=== PATIENT | female | born 1940 | race Caucasian/White ===

== ENCOUNTER → 2016-10-13 | Outpatient (CLI) | payer MEDICARE ==
[~2016-10-13] MED LIST: ACYC400T21 PO; ASP81TEC PO; HYDR-1231 PO; LOSA1TAB23 PO; MAXIDE; PRILOSEC 20MG; PRX10T; SOLI5TAB4 PO; TOLTA4; [UNRECOGNIZED DRUG - OTHER]
--- NOTE | 2016-10-13 18:54 | Diagnostic Imaging Report ---
Digital mammogram bilateral screening with tomosynthesis. This study was compared to the prior exams of 12/27/2014 and 02/21/2012. At this time, there are no current complaints. The current study was also evaluated with a Computer Aided Detection (CAD) system. FINDINGS: There are scattered fibroglandular densities in both breasts which could obscure a lesion. When compared to the previous study, there has been no significant change. There is no primary or secondary sign of malignancy noted. There are a Few punctate calcific-like densities overlying the left axilla on the MLO view. I suspect these are secondary to deodorant artifact. I would recommend that a repeat MLO view be performed for further evaluation. IMPRESSION: 1. There is no evidence of malignancy. 2. The MLO view of the left breast should be repeated. ACR BI-RADS Category 0: Incomplete. (Needs additional imaging evaluation). Result letter will be mailed to the patient. Note: At least 10% of breast cancer is not imaged by mammography. Dictated by: Dictated on workstation # [id number]
== END ==
LOC: RAD 08:36
PROVIDERS: ATTEND Obstetrics & Gynecology
DX: Z12.31 Encounter for screening mammogram for malignant neoplasm of breast (principal)
CPT/HCPCS: 77067

== ENCOUNTER → 2016-10-13 | Outpatient (CLI) | payer MEDICARE ==
--- NOTE | 2016-10-13 10:05 | Diagnostic Imaging Report ---
PROCEDURE: US abdomen complete. TECHNIQUE: Multiple real-time grayscale images were obtained over the abdomen in various projections. INDICATION: Bloody diarrhea. There are no previous ultrasound examinations available for comparison. FINDINGS: The liver does not appear to be enlarged. There is no focal mass involving the liver and the biliary tree is not abnormally dilated. There is no sign of cholelithiasis or acute cholecystitis and the common bile duct is not dilated. The pancreas, the spleen, kidneys, aorta and inferior vena cava are unremarkable for an acute abnormality. There is a 1.0 x 0.8 x 0.7 CM benign-appearing cyst along the inferior pole of the left kidney. There is no mass or free fluid collection noted. IMPRESSION: 1. There is no acute abnormality of the abdomen. 2. If clinical concern regarding an underlying abnormality of the gallbladder persists, then a nuclear medicine hepatobiliary scan would be recommended for further study. Dictated by: Dictated on workstation # [id number]
--- NOTE | 2016-10-13 10:08 | Diagnostic Imaging Report ---
Pelvic ultrasound. INDICATION: Pelvic pain. There are no previous pelvic ultrasound examinations available for comparison. FINDINGS: The uterus is not enlarged measuring 4.7 x 3.2 x 1.6 CM. The endometrial lining is not thickened measuring 1 MM. There is no focal mass involving the uterus to suggest fibroid. Neither ovary was identified. There is no solid pelvic mass or free fluid collection noted. IMPRESSION: 1. There is no acute pelvic abnormality noted. 2. The ovaries were not identified. Dictated by: Dictated on workstation # [id number]
== END ==
LOC: RAD 08:33
PROVIDERS: ATTEND Obstetrics & Gynecology
DX: R10.2 Pelvic and perineal pain (principal); F10.20 Alcohol dependence, uncomplicated; R16.2 Hepatomegaly with splenomegaly, not elsewhere classified
CPT/HCPCS: 76700; 76830; 76856

== ENCOUNTER → 2016-10-26 | Outpatient (CLI) | payer MEDICARE ==
--- NOTE | 2016-10-28 10:30 | Diagnostic Imaging Report ---
ADDENDUM: This is an addendum to the mammogram performed on 10/13/2016. The previous bilateral screening mammogram noted punctate densities overlying the left axilla on the MLO view. These findings were felt to be related to deodorant artifact. The patient was asked to return to confirm that these punctate densities were in fact artifactual in nature. On this study, those punctate densities are not identified. There are still two microcalcifications present. I do suspect that the densities in question were artifactual in nature. IMPRESSION: There is no evidence for malignancy. ACR BI-RADS Category 1: Negative. Result letter will be mailed to the patient. Note: At least 10% of breast cancer is not imaged by mammography. Dictated by: Dictated on workstation # [id number]
== END ==
LOC: RAD 10:44
PROVIDERS: ATTEND Obstetrics & Gynecology
DX: Z12.31 Encounter for screening mammogram for malignant neoplasm of breast (principal)

== ENCOUNTER → 2017-01-21 | Outpatient (CLI) | payer MEDICARE ==
--- NOTE | 2017-01-21 10:54 | Diagnostic Imaging Report ---
PROCEDURE: US Carotid Duplex Bilateral. INDICATION: Blurred vision. Neck and throat pain. TECHNIQUE: Multiple real-time images with color Doppler imaging were performed. Doppler velocity and waveform data were obtained. The cervical carotid and vertebral arteries were evaluated. FINDINGS: Color and grayscale images demonstrate mild scattered atheromatous plaque involving the carotid arteries, particularly at the carotid bifurcations. However, there are no abnormally elevated velocities or findings to suggest significant stenosis of the carotid arteries at this time. Peak systolic ICA/CCA ratio on the right is 0.69 and on the left 1.12. External carotid arteries are patent. Vertebral arteries are with antegrade direction of flow. IMPRESSION: 1. Carotid Doppler imaging demonstrates no findings to suggest a hemodynamically significant stenosis at this time. Dictated by: Dictated on workstation # [id number]
== END ==
LOC: RAD 09:27
PROVIDERS: ATTEND Nurse Practitioner Family
DX: H53.8 Other visual disturbances (principal); R07.0 Pain in throat; M54.2 Cervicalgia
CPT/HCPCS: 93880

== ENCOUNTER → 2017-06-02 | Outpatient (CLI) | payer MEDICARE ==
--- NOTE | 2017-06-02 11:09 | Diagnostic Imaging Report ---
Indication: Low back pain and sacral pain for 2 months. Time of exam: 9:50 AM Curvature and alignment of the lumbar spine is normal. There is generalized demineralization noted. The vertebral body heights are maintained. No acute compression fracture is detected. There appears to be lower lumbar facet arthropathy. Atherosclerotic calcifications in the abdominal aorta are noted. Impression: Spondylosis and demineralization. No acute bony abnormality is detected. Dictated by: Dictated on workstation # [id number]
--- NOTE | 2017-06-02 11:24 | Diagnostic Imaging Report ---
Indication: Low back pain and sacral pain. Time of exam: 9:52 AM Findings: There is demineralization. Sacrococcygeal alignment appears normal. No fractures are seen. Sacral arcuate lines are intact. SI joints and symphysis are unremarkable. Impression: No acute abnormality is detected. Dictated by: Dictated on workstation # [id number]
== END ==
LOC: RAD 09:20
PROVIDERS: ATTEND Family Medicine
DX: M47.816 Spondylosis without myelopathy or radiculopathy, lumbar region (principal); M81.0 Age-related osteoporosis without current pathological fracture
CPT/HCPCS: 72100; 72220

== ENCOUNTER 2017-06-24 09:24 | Outpatient (RCR) | payer MEDICARE | END 2017-06-24 11:42 | disposition home or self-care (01) | PROVIDERS: ATTEND Family Medicine | DX: M54.5 Low back pain (principal); M54.2 Cervicalgia ==

== ENCOUNTER → 2018-05-18 | Outpatient (CLI) | payer MEDICARE ==
--- NOTE | 2018-05-18 13:39 | Diagnostic Imaging Report ---
PROCEDURE: US Thyroid. TECHNIQUE: Multiple real-time grayscale images were obtained of the thyroid in various projections. INDICATION: Thyroid nodules. COMPARISON: No prior studies are available for comparison. FINDINGS: The right lobe of the thyroid measures 4.7 x 1.9 x 1.3 cm and the left lobe measures 4.3 x 1.4 x 1.5 cm. Isthmus is 2 mm in thickness. Small bilateral circumscribed thyroid nodules are identified. The largest nodule on the right is approximately 7 mm x 6 mm. Largest nodule on the left is approximately 5 mm in size. No microcalcifications are seen. No dominant thyroid mass is detected. IMPRESSION: Subcentimeter bilateral thyroid nodules. No dominant thyroid mass is detected. Dictated by: Dictated on workstation # [id number]
--- NOTE | 2018-05-18 19:41 | Diagnostic Imaging Report ---
PROCEDURE: CT chest without contrast. TECHNIQUE: Multiple contiguous axial images were obtained through the chest without the use of intravenous contrast. Auto Exposure Controls were utilized during the CT exam to meet ALARA standards for radiation dose reduction. DATE: May 18, 2018. COMPARISON: CT chest, November 14, 2014. INDICATION: 57-year-old female, emphysema, shortness of breath. PROCEDURE: Axial noncontrasted CT images of the chest. Noncontrasted limits the evaluation of the mediastinum and vascular structures. FINDINGS: There are very mild linear opacities in the lingula and right middle lobe that likely relate to mild atelectasis or scarring. There is a semisolid left upper lobe pulmonary nodule, measuring 9 mm in size on axial image 21. This is new since November 14, 2014. There is no additional identified pulmonary nodule. There is no lung mass. There is no additional focal airspace consolidation. The central airways are patent. There is no pneumothorax. There is no pleural effusion. The heart is not enlarged. There is no pericardial effusion. There are atherosclerotic calcifications. There is no identified abnormally enlarged mediastinal or axillary lymph node which meets CT size criteria for adenopathy. There is cholelithiasis without evidence of acute cholecystitis. Additional evaluation of the imaged portions of the upper abdomen are unremarkable. There is no identified acute bony abnormality. IMPRESSION: 9 mm semisolid left upper lobe pulmonary nodule which is new since November 14, 2014. Recommend short-term followup CT chest in 1-2 months to evaluate for possible stability. Dictated by: Dictated on workstation # [id number]
== END ==
LOC: RAD 12:39
PROVIDERS: ATTEND Family Medicine
DX: E04.2 Nontoxic multinodular goiter (principal); J43.9 Emphysema, unspecified; R91.1 Solitary pulmonary nodule
CPT/HCPCS: 71250; 76536

== ENCOUNTER → 2018-06-15 | Outpatient (CLI) | payer MEDICARE | LOC: CARD 11:38 | PROVIDERS: ATTEND Internal Medicine Cardiovascular Disease | DX: I10 Essential (primary) hypertension (principal); R07.89 Other chest pain; I65.29 Occlusion and stenosis of unspecified carotid artery; E78.2 Mixed hyperlipidemia; Z72.0 Tobacco use; I34.0 Nonrheumatic mitral (valve) insufficiency | CPT/HCPCS: 93306 ==

== ENCOUNTER → 2018-06-21 | Outpatient (CLI) | payer MEDICARE ==
[~2018-06-21] MED LIST changes: +CATHETER FLUSH 10 ML SYR IV PRN
[2018-06-21 09:21] VITALS: BP 156/83
--- NOTE | 2018-06-21 19:53 | STRESS TEST ---
DATE OF SERVICE: 06/21/2018 AN EXERCISE MYOVIEW STRESS TEST REPORT REFERRING PHYSICIAN: Renee Hernandez MD INDICATION: Chest pain. Baseline heart rate is 65, baseline blood pressure 172/95. Baseline EKG is sinus rhythm with no ischemic changes. In summary, the patient was injected with 10.8 mCi of technetium-99 Myoview and the resting images were obtained. Then, the patient started exercising with a baseline heart rate, blood pressure and EKG mentioned above. The patient was able to exercise for a total of 6 minutes 30 seconds on standard Bimal protocol. With peak exercise level, EKG was showing [address] depression in II, III, aVF, V4 and V5. Blood pressure was 180/83. During recovery, heart rate and blood pressure returned to baseline. EKG returned to baseline. The resting and stress images were reviewed and compared in the short axis, horizontal long axis, and vertical long axis views. Review of the images showed good radiotracer uptake with no significant ischemia or infarction. SSS is 3, SDS 3, TID value 0.97. On the gated images, the left ventricle appeared to be in normal size with normal contractility. Calculated ejection fraction 83%. CONCLUSION: 1. Fair exercise tolerance, a total of 6 minutes 30 seconds on standard Bimal protocol, total of 7.7 METS achieving 92% of maximum expected heart rate. 2. Appropriate heart rate and blood pressure response to exercise, returned to baseline during recovery. 3. Nondiagnostic EKG changes with exercise, returned to baseline during recovery. 4. No significant ischemia or infarction on SPECT images. 5. Normal left ventricular size with normal contractility. Calculated ejection fraction 83%. Job ID: [id number] DocumentID: [id number] Dictated Date: 06/21/2018 15:16:51 [employer] Front Desk Attendant Date: 06/21/2018 19:52:59 Dictated By: SONDRA MONTENEGRO MD
== END ==
LOC: CARD 06:47
PROVIDERS: ATTEND Internal Medicine Cardiovascular Disease
DX: R07.89 Other chest pain (principal); I10 Essential (primary) hypertension; E78.2 Mixed hyperlipidemia; Z72.0 Tobacco use
CPT/HCPCS: 78452; 93017

== ENCOUNTER → 2018-07-21 | Outpatient (CLI) | payer MEDICARE ==
[~2018-07-21] MED LIST changes: -CATHETER FLUSH 10 ML SYR IV PRN; +RT-ALBUTEROL SULF 2.5 MG/3 ML PRE-MIX VIAL INH ONE
== END ==
LOC: RT 12:56
PROVIDERS: ATTEND Nurse Practitioner Family
DX: R05 Cough (principal); R06.89 Other abnormalities of breathing; J30.9 Allergic rhinitis, unspecified; R06.00 Dyspnea, unspecified; R91.8 Other nonspecific abnormal finding of lung field; F17.201 Nicotine dependence, unspecified, in remission
CPT/HCPCS: 94060; 94726; 94729

== ENCOUNTER → 2018-07-25 | Outpatient (CLI) | payer MEDICARE ==
[~2018-07-25] MED LIST changes: +HOLD METFORMIN - RECEIVED CONTRAST 20 ML VIAL IV SCH; +IOHEXOL 350 MG/ML 100 ML (OMNIPAQUE 350) VIAL IV ONE; +NS 100 ML (IVPB) BAG IV ONE; -RT-ALBUTEROL SULF 2.5 MG/3 ML PRE-MIX VIAL INH ONE
[2018-07-25 08:28] LABS: BUN/CREATININE RATIO 16; CREATININE SERUM 0.88 MG/DL (0.60-1.30); GFR ESTIMATED > 60
--- NOTE | 2018-07-25 10:49 | Diagnostic Imaging Report ---
PROCEDURE: CT chest with contrast only. TECHNIQUE: Multiple contiguous axial images were obtained through the chest after administration of intravenous contrast. Auto Exposure Controls were utilized during the CT exam to meet ALARA standards for radiation dose reduction. INDICATION: Followups of solid pulmonary nodule. COMPARISON: 05/18/2018 FINDINGS: Evaluation of the lung cornejo again demonstrate faint sub-solid micronodular density within the lateral margins of the left upper lobe. It measures 9 mm on today's exam (image 29, series 2), in comparison to 9 mm previously. Punctate subpleural micronodules also noted within the medial margins of the superior segment of the right lower lobe and measures approximately 2 mm (image 32, series 2). This is stable as well. No new suspicious pulmonary nodule or mass is identified. There is no focal consolidation, large effusion, nor pneumothorax. Note is again made of background mild emphysematous disease. Cardiomediastinal structures show normal heart size. There is moderate diffuse calcified aortic atherosclerosis and mild calcified coronary atherosclerotic disease. There is no large pericardial effusion. No pathologically enlarged or morphologically abnormal adenopathy is seen within the mediastinum, gabriele, nor axilla. Osseous structures show no acute abnormalities. Included portions of the upper abdomen show small cystic-appearing foci involving the left kidney and liver. IMPRESSION: 1. Stable faint sub-solid 9 mm micronodule within the left upper lobe. Six-month followup is recommended to ensure ongoing stability. 2. Stable micronodular density within the superior segment of the right lower lobe. 3. No new suspicious pulmonary nodule or mass. 4. Background mild emphysematous disease. Dictated by: Dictated on workstation # [id number]
== END ==
LOC: RAD 07:56
PROVIDERS: ATTEND Nurse Practitioner Family
DX: J43.9 Emphysema, unspecified (principal); J98.4 Other disorders of lung; R91.1 Solitary pulmonary nodule; J30.9 Allergic rhinitis, unspecified; F17.201 Nicotine dependence, unspecified, in remission
CPT/HCPCS: 36415; 71260; 82565; 84520

== ENCOUNTER 2018-11-16 09:25 | Emergency (ER) | payer MEDICARE ==
[~2018-11-16] VITALS: Ht 154.9 cm; Wt 59.0 kg
[~2018-11-16 09:25] MED LIST changes: -HOLD METFORMIN - RECEIVED CONTRAST 20 ML VIAL IV SCH; -IOHEXOL 350 MG/ML 100 ML (OMNIPAQUE 350) VIAL IV ONE; -NS 100 ML (IVPB) BAG IV ONE
[2018-11-16] MEDS ORDERED: NS IV 500 ML 500 ML IV ONE (09:57)
[2018-11-16 10:07] LABS: BASOPHILS # (AUTO) 0.1 10^3/uL (0.0-0.1); BASOPHILS % (AUTO) 1 % (0-10); EOSINOPHILS # (AUTO) 0.1 10^3/uL (0.0-0.3); EOSINOPHILS % (AUTO) 1 % (0-10); HEMATOCRIT 45 % (35-52); HEMOGLOBIN 14.9 G/DL (11.5-16.0); LYMPHOCYTES # (AUTO) 1.6 X 10^3 (1.0-4.0); LYMPHOCYTES % (AUTO) 23 % (12-44); MEAN CORPUSCULAR HEMOGLOBIN 31 PG (25-34); MEAN CORPUSCULAR HGB CONC 33 G/DL (32-36); MEAN CORPUSCULAR VOLUME 94 FL (80-99); MEAN PLATELET VOLUME 10.5 FL (7.4-10.4); MONOCYTES # (AUTO) 0.5 X 10^3 (0.0-1.0); MONOCYTES % (AUTO) 7 % (0-12); NEUTROPHILS # (AUTO) 4.8 X 10^3 (1.8-7.8); NEUTROPHILS % (AUTO) 68 % (42-75); PLATELET COUNT 250 10^3/uL (130-400); RED CELL DISTRIBUTION WIDTH 15.2 % (10.0-14.5); WHITE BLOOD COUNT 7.1 10^3/uL (4.3-11.0)
--- NOTE | 2018-11-16 10:12 | ED Neurological Problem ---
General Chief Complaint: Dizziness/Syncope Stated Complaint: DIZZINESS Nursing Triage Note: PT TO RM 5 BY WHEELCHAIR WITH COMPLAINT OF DIZZINES AND SPINNING. STATES SYMPTOMS STARTED THIS MORNING. STATES TOOK BP AT HOME AND IT WAS HIGH. Nursing Sepsis Screen: No Definite Risk Source: patient Exam Limitations: no limitations (CANDELARIO GARCIA STUDENT) History of Present Illness Date Seen by Provider: Nov 16, 2018 Time Seen by Provider: 09:50 Initial Comments The patient is a wd/wn 77 y/o woman who is here with a chief complaint of dizziness. She states that she had some mild dizziness yesterday and woke up this morning with severe dizziness. She has been laying on the couch with her eyes closed to try and alleviate symptoms. She reports that the symptoms are non-positional and that closing her eyes seems to help. She also mentions having some posterior left neck pain yesterday. She denies any recent illnesses, fever, headaches, ringing in ears, loss of hearing, or ear pressure. She mentions having a previous episode of vestibular neuritis years ago and that this feels similar albeit more intense. Timing/Duration: 1-3 hours Severity: mild Associated Symptoms: No fever/chills, No numbness in legs/feet, No paresthesia, No ringing in ears, No tingling in legs/feet, No vision changes (CANDELARIO GARCIA MED STUDENT) Initial Comments Here with dizziness that is noted yesterday afternoon and much worse this morning when she got up. Did have some difficulty with walking due to the dizziness and had to be assisted at home and from the car inside here today. She states overall it is actually better though than what it was at its worst. Denies recent illness. Does have some left lateral neck pain that she noted yesterday. This does not limit motion. It is not central. Denies any recent injury. She does report working out at the [employer] a few days a week. Has had similar symptoms previous. Timing/Duration: 24 hours, waxing and waning Severity: moderate Associated Symptoms: No confusion, No nausea/vomiting, No seizures, No slurred speech, No weakness (CHEYANNE SERRANO MD) Allergies and Home Medications Allergies Coded Allergies: Sulfa (Sulfonamide Antibiotics) (Verified Allergy, Unknown, 02/28/06) Home Medications Acyclovir 400 Mg Tablet, 400 MG PO DAILY, (Reported) Aspirin 81 Mg Tabec, 81 MG PO DAILY, (Reported) Hydrocodone Bit/Acetaminophen 1 Tab Tablet, 1-2 TAB PO Q6H PRN for PAIN Prescribed by: ADALBERTO GARCIA on 02/18/14 0020 Losartan/Hydrochlorothiazide 1 Each Tablet, 1 EACH PO DAILY, (Reported) Solifenacin Succinate 5 Mg Tablet, 5 MG PO DAILY, (Reported) Patient Home Medication List Home Medication List Reviewed: Yes (CHEYANNE SERRANO MD) Review of Systems Review of Systems Constitutional: No fever, No malaise Eyes: Denies Blurred Vision, Denies Vision Changes Respiratory: No cough, No short of breath Cardiovascular: No chest pain, No palpitations (CANDELARIO GARCIA) Constitutional: see HPI Eyes: No Symptoms Reported Ears, Nose, Mouth, Throat: no symptoms reported Respiratory: no symptoms reported Cardiovascular: No chest pain, No palpitations Gastrointestinal: No abdominal pain, No nausea, No vomiting Genitourinary: no symptoms reported Musculoskeletal: no symptoms reported, muscle pain, neck pain Skin: no symptoms reported Psychiatric/Neurological: See HPI (CHEYANNE SERRANO MD) Past Uerfvhb-Tbjpcr-Rtjnmp Hx Past Med/Social Hx: Reviewed Nursing Past Med/Soc Hx (CHEYANNE SERRANO MD) Patient Social History Alcohol Use: Regular Use Alcohol Beverage of Choice: Whiskey, [place] Recreational Drug Use: No Smoking Status: Former Smoker Recent Foreign Travel: No Contact w/Someone Who Travel: No Recent Infectious Disease Expo: No Physical Abuse: No Sexual Abuse: No Mistreated: No Fear: No (CANDELARIO GARCIA STUDENT) Immunizations Up To Date Date of Pneumonia Vaccine: Jan 01, 2009 Date of Influenza Vaccine: Nov 21, 2013 (CANDELARIO GARCIA STUDENT) Seasonal Allergies Seasonal Allergies: No (CANDELARIO GARCIA) Past Medical History High Cholesterol, Hypertension Reproductive Disorders: No [facility] HOME History: Menopausal Gastrointestinal Bleed (CANDELARIO GARCIA) Family Medical History Reviewed Nursing Family Hx (CHEYANNE SERRANO MD) Physical Exam Vital Signs Vital Signs - First Documented 11/16/18 09:30 Temp 36.6 Pulse 84 Resp 12 B/P (MAP) 186/105 (132) Pulse Ox 97 O2 Delivery Room Air (CHEYANNE SERRANO MD) Vital Signs Capillary Refill : Less Than 3 Seconds (CANDELARIO GARCIA MED STUDENT) Height, Weight, BMI Height: 5'0" Weight: 128lbs. oz. 58.542265ul; 24.00 BMI Method:Stated General Appearance: WD/WN, no apparent distress HEENT: PERRL/EOMI; No photophobia Respiratory: chest non-tender, lungs clear, normal breath sounds Cardiovascular: regular rate, rhythm, no edema, no murmur Back: normal inspection, no vertebral tenderness Neurologic/Psychiatric: alert, normal mood/affect, oriented x 3 Crainal Nerves: normal hearing, normal speech, PERRL Motor/Sensory: no motor deficit, no sensory deficit Skin: normal color, warm/dry (CANDELARIO GARCIA MED STUDENT) General Appearance: WD/WN, no apparent distress HEENT: PERRL/EOMI, TMs normal, pharynx normal, other (question mild nonpersiste nt horizontal nystagmus. No vertical nystagmus noted.) Neck: full range of motion, supple Respiratory: lungs clear, normal breath sounds Cardiovascular: regular rate, rhythm Gastrointestinal: non tender, soft Back: normal inspection, no CVA tenderness, no vertebral tenderness Extremities: non-tender, normal inspection Neurologic/Psychiatric: alert, oriented x 3 Crainal Nerves: normal hearing, normal speech, PERRL Motor/Sensory: no motor deficit, no sensory deficit, no pronator drift Skin: normal color, warm/dry (CHEYANNE SERRANO MD) Progress/Results/Core Measures Results/Orders Lab Results Laboratory Tests Test 11/16/18 09:30 11/16/18 11:08 Range/Units White Blood Count 7.1 4.3-11.0 10^3/uL Red Blood Count 4.78 4.35-5.85 10^6/uL Hemoglobin 14.9 11.5-16.0 G/DL Hematocrit 45 35-52 % Mean Corpuscular Volume 94 80-99 FL Mean Corpuscular Hemoglobin 31 25-34 PG Mean Corpuscular Hemoglobin Concent 33 32-36 G/DL Red Cell Distribution Width 15.2 H 10.0-14.5 % Platelet Count 250 130-400 10^3/uL Mean Platelet Volume 10.5 H 7.4-10.4 FL Neutrophils (%) (Auto) 68 42-75 % Lymphocytes (%) (Auto) 23 12-44 % Monocytes (%) (Auto) 7 0-12 % Eosinophils (%) (Auto) 1 0-10 % Basophils (%) (Auto) 1 0-10 % Neutrophils # (Auto) 4.8 1.8-7.8 X 10^3 Lymphocytes # (Auto) 1.6 1.0-4.0 X 10^3 Monocytes # (Auto) 0.5 0.0-1.0 X 10^3 Eosinophils # (Auto) 0.1 0.0-0.3 10^3/uL Basophils # (Auto) 0.1 0.0-0.1 10^3/uL Erythrocyte Sedimentation Rate 6 0-30 MM/HR D-Dimer 0.61 H 0.00-0.49 UG/ML Sodium Level 137 135-145 MMOL/L Potassium Level 4.2 3.6-5.0 MMOL/L Chloride Level 103 98-107 MMOL/L Carbon Dioxide Level 27 21-32 MMOL/L Anion Gap 7 5-14 MMOL/L Blood Urea Nitrogen 10 7-18 MG/DL Creatinine 0.89 0.60-1.30 MG/DL Estimat Glomerular Filtration Rate > 60 BUN/Creatinine Ratio 11 Glucose Level 102 70-105 MG/DL Calcium Level 10.4 H 8.5-10.1 MG/DL Corrected Calcium 10.2 H 8.5-10.1 MG/DL Magnesium Level 1.8 1.6-2.4 MG/DL Total Bilirubin 0.5 0.1-1.0 MG/DL Aspartate Amino Transf (AST/SGOT) 27 5-34 U/L Alanine Aminotransferase (ALT/SGPT) 20 0-55 U/L Alkaline Phosphatase 74 40-136 U/L Troponin I < 0.028 <0.028 NG/ML C-Reactive Protein High Sensitivity 0.39 0.00-0.50 MG/DL Total Protein 7.6 6.4-8.2 GM/DL Albumin 4.3 3.2-4.5 GM/DL Urine Color YELLOW Urine Clarity CLEAR Urine pH 8 5-9 Urine Specific [place] 1.010 L 1.016-1.022 Urine Protein NEGATIVE NEGATIVE Urine Glucose (UA) NEGATIVE NEGATIVE Urine Ketones NEGATIVE NEGATIVE Urine Nitrite NEGATIVE NEGATIVE Urine Bilirubin NEGATIVE NEGATIVE Urine Urobilinogen NORMAL NORMAL MG/DL Urine Leukocyte Esterase NEGATIVE NEGATIVE Urine RBC (Auto) NEGATIVE NEGATIVE Urine RBC 2-5 H /HPF Urine WBC RARE /HPF Urine Squamous Epithelial Cells 0-2 /HPF Urine Crystals NONE /LPF Urine Bacteria NEGATIVE /HPF Urine Casts NONE /LPF Urine Mucus NEGATIVE /LPF Urine Culture Indicated NO (CHEYANNE SERRANO MD) My Orders Orders - CHEYANNE SERRANO MD Cbc With Automated Diff (11/16/18 09:57) Comprehensive Metabolic Panel (11/16/18 09:57) Hs C Reactive Protein (11/16/18 09:57) Magnesium (11/16/18 09:57) Troponin I (11/16/18 09:57) Ua Culture If Indicated (11/16/18 09:57) Erythrocyte Sedimentation Rate (11/16/18 09:57) Ekg Tracing (11/16/18 09:57) Chest 1 View, Ap/Pa Only (11/16/18 09:57) Ed Iv/Invasive Line Start (11/16/18 09:57) Fibrin Degradation Products (11/16/18 09:57) Ed Iv/Invasive Line Start (11/16/18 09:57) Ns Iv 500 Ml (Sodium Chloride 0.9%) (11/16/18 09:57) Meclizine Tablet (Antivert Tablet) (11/16/18 10:15) Ct Head Wo-R/O Stroke (11/16/18 10:02) Dysphagia Screening Tool (11/16/18 10:08) Dexamethasone Injection (Decadron Inject (11/16/18 11:30) Ed Iv/Invasive Line Start (11/16/18 11:23) Ketorolac Injection (Toradol Injection) (11/16/18 11:23) Ns Iv 500 Ml (Sodium Chloride 0.9%) (11/16/18 11:40) (CHEYANNE SERRANO MD) Medications Given in ED Current Medications Medications Dose Ordered Sig/Omar Route Start Time Stop Time Status Last Admin Dose Admin Dexamethasone Sodium Phosphate 10 mg ONCE ONCE IV 11/16/18 11:30 11/16/18 11:31 DC 11/16/18 11:44 10 MG Meclizine HCl 25 mg ONCE ONCE PO 11/16/18 10:15 11/16/18 10:16 DC 11/16/18 10:32 25 MG Sodium Chloride 500 ml @ 0 mls/hr Q0M ONCE IV 11/16/18 09:57 11/16/18 10:01 DC 11/16/18 10:28 500 MLS/HR (CHEYANNE SERRANO MD) Vital Signs/I&O 11/16/18 09:30 Temp 36.6 Pulse 84 Resp 12 B/P (MAP) 186/105 (132) Pulse Ox 97 O2 Delivery Room Air (CHEYANNE SERRANO MD) Blood Pressure Mean: 132 Progress Progress Note : Time: 10:10 Progress Note The patient is resting comfortably in the exam room. Initial imaging will consist of plain chest radiograph and CT of head and cervical spine. She will be evaluated with CBC, CMP, CRP, D-dimer, ESR, Magnesium, and Troponin. IV-NS will also be administered. (CANDELARIO GARCIA MED STUDENT) Progress Note : Progress Note I have seen and evaluated the patient and agree with above except as indicated. I have directed the plan of care. IV, labs, UA, CT head, chest x-ray and EKG ordered. Normal saline 500 mL bolus and meclizine 25 mg by mouth ordered. Monitor patient. Patient is somewhat improved after fluids and meclizine. 1115: Patient was able to walk with some assistance to the bathroom to give UA sample. 1140: We have ordered Decadron 10 mg IV, Toradol 15 mg IV for the neck pain and question of inner ear problems. Repeat fluids bolus with normal saline 500 mL. I have reviewed the records and found that she had echocardiogram this year that showed EF of 70-75%. Also had carotid ultrasound 2 years ago which showed no significant stenosis in the carotid systems. Monitor patient. 1205: Patient states that she is dramatically improved and feels so much better now. Pain is gone. She did have questions regarding her upcoming surgery. I don't see any concerns at this point but I have referred her back to her doctor, Dr. Hernandez. I will send Dr. Hernandez a copy of today's chart and data. Discharged home with return precautions. Patient and family verbalize understanding instructions and agreement with plan. (CHEYANNE SERRANO MD) Initial ECG Impression Date: Nov 16, 2018 Initial ECG Impression Time: 09:43 Initial ECG Rate: 60 Initial ECG Rhythm: Normal Sinus Initial ECG Comparisson: Unchanged Comment Sinus with normal axis. Left atrial abnormality. No evidence of STEMI. Interpreted by me. Similar to previous of 11 Oct 2007 (CHEYANNE SERRANO MD) Diagnostic Imaging Diagonstic Imaging: CT Plain Films/CT/US/NM/MRI: head Comments [facility], [place] NAME: PREETI MAGUIRE [facility] REC#: [id number] PT STATUS: REG ER : 1940 PHYSICIAN: CHEYANNE SERRANO MD ADMIT DATE: 11/16/18/ER Draft Date of Exam:11/16/18 CT HEAD WO-R/O STROKE PROCEDURE: CT head wo r/o stroke. TECHNIQUE: Multiple contiguous axial images were obtained through the brain without the use of intravenous contrast. Auto Exposure Controls were utilized during the CT exam to meet ALARA standards for radiation dose reduction. INDICATION: Dizziness. No prior head CTs are available for comparison. The ventricles and sulci are appropriate for the patient's age. Mild periventricular white matter changes are noted. No sulcal effacement or midline shift is detected. No acute intra-axial or extra-axial hemorrhage is detected. Cisterns are patent. Visualized paranasal sinuses are clear. IMPRESSION: No acute intracranial process is detected. Dictated on workstation # [id number] Dict: 11/16/18 1024 Trans: 11/16/18 1031 NATASHA [id number] Interpreted by: CHRISTY PEREZ MD Electronically signed by: Diagonstic Imaging: Xray Plain Films/CT/US/NM/MRI: chest Comments [facility], [facility]. [place], [place] NAME: PREETI MAGUIRE [facility] REC#: [id number] PT STATUS: REG ER : 1940 PHYSICIAN: CHEYANNE SERRANO MD ADMIT DATE: 11/16/18/ER Draft Date of Exam:11/16/18 CHEST 1 VIEW, AP/PA ONLY Indication: Dizziness. Time of exam: 10:12 AM Comparison is made with prior chest from 03/23/2011. The heart size is normal. The pulmonary vascularity is unremarkable. The lungs are clear. No infiltrate, effusion or pneumothorax is detected. Impression: No acute cardiopulmonary process is detected. Dictated on workstation # [id number] Dict: 11/16/18 1025 Trans: 11/16/18 1027 [facility] [id number] Interpreted by: CHRISTY PEREZ MD Electronically signed by: (CHEYANNE SERRANO MD) Departure Impression Primary Impression: Dizziness Additional Impression: Cervical muscle strain Qualified Codes: S16.1XXA - Strain of muscle, fascia and tendon at neck level, initial encounter Disposition: HOME, SELF-CARE Condition: Improved Departure-Patient Inst. Decision time for Depature: 12:06 (CHEYANNE SERRANO MD) Referrals: WHITLEY HERNANDEZ MD (PCP/Family) Primary Care Physician Patient Instructions: Vertigo (a Type of Dizziness) (DC), Cervical Muscle Strain (DC) Add. Discharge Instructions: All discharge instructions reviewed with patient and/or family. Voiced understanding. You may take jtey-bin-lgzprcy meclizine 25 mg, one tablet every 8 hours as needed for dizziness. Drink plenty of fluids. You may take ibuprofen 400 mg every 6-8 hours as needed for neck pain. You may also take Tylenol/acetaminophen 1000 mg every 8 hours as needed for neck pain. Follow-up with Dr. Hernandez for recheck and further evaluation and to discuss your upcoming operation. Return for worse pain, fever, vomiting, weakness, breathing problems, vision or balance problems, speech problems or other concerns as needed. Copy Copies To 1: WHITLEY HERNANDEZ MD, JOSHUA K MED STUDENT Nov 16, 2018 10:12 CHEYANNE SERRANO MD Nov 16, 2018 11:42
[2018-11-16] MEDS ORDERED: MECLIZINE 25 MG (ANTIVERT) TAB PO ONE (10:15)
[2018-11-16 10:19] LABS: ALANINE AMINOTRANSFERASE 20 U/L (0-55); ALBUMIN 4.3 GM/DL (3.2-4.5); ALKALINE PHOSPHATASE 74 U/L (40-136); BILIRUBIN,TOTAL 0.5 MG/DL (0.1-1.0); BUN/CREATININE RATIO 11; CALCIUM 10.4 MG/DL (8.5-10.1); CARBON DIOXIDE 27 MMOL/L (21-32); CHLORIDE 103 MMOL/L (98-107); CREATININE SERUM 0.89 MG/DL (0.60-1.30); GFR ESTIMATED > 60; GLUCOSE 102 MG/DL (70-105); MAGNESIUM 1.8 MG/DL (1.6-2.4); POTASSIUM 4.2 MMOL/L (3.6-5.0); SODIUM 137 MMOL/L (135-145); TOTAL PROTEIN 7.6 GM/DL (6.4-8.2)
--- NOTE | 2018-11-16 10:28 | Diagnostic Imaging Report ---
Indication: Dizziness. Time of exam: 10:12 AM Comparison is made with prior chest from 03/23/2011. The heart size is normal. The pulmonary vascularity is unremarkable. The lungs are clear. No infiltrate, effusion or pneumothorax is detected. Impression: No acute cardiopulmonary process is detected. Dictated by: Dictated on workstation # [id number]
--- NOTE | 2018-11-16 10:31 | Diagnostic Imaging Report ---
PROCEDURE: CT head wo r/o stroke. TECHNIQUE: Multiple contiguous axial images were obtained through the brain without the use of intravenous contrast. Auto Exposure Controls were utilized during the CT exam to meet ALARA standards for radiation dose reduction. INDICATION: Dizziness. No prior head CTs are available for comparison. The ventricles and sulci are appropriate for the patient's age. Mild periventricular white matter changes are noted. No sulcal effacement or midline shift is detected. No acute intra-axial or extra-axial hemorrhage is detected. Cisterns are patent. Visualized paranasal sinuses are clear. IMPRESSION: No acute intracranial process is detected. Dictated by: Dictated on workstation # [id number]
[2018-11-16 10:49] LABS: ERYTHROCYTE SEDIMENTATION RATE 6 MM/HR (0-30)
[2018-11-16 11:14] LABS: BILIRUBIN,URINE NEGATIVE (NEGATIVE); CLARITY,URINE CLEAR; COLOR,URINE YELLOW; GLUCOSE, URINE (UA) NEGATIVE (NEGATIVE); KETONES,URINE NEGATIVE (NEGATIVE); LEUKOCYTE ESTERASE ,URINE NEGATIVE (NEGATIVE); NITRITE,URINE NEGATIVE (NEGATIVE); PH,URINE 8 (5-9); PROTEIN,URINE NEGATIVE (NEGATIVE); UROBILINOGEN,URINE NORMAL (NORMAL)
[2018-11-16 11:22] LABS: BACTERIA,URINE NEGATIVE /HPF; SQUAMOUS EPITHELIAL CELL,UR 0-2 /HPF; WBC,URINE RARE /HPF
[2018-11-16] MEDS ORDERED: KETOROLAC 30 MG/ML VIAL IVP STA (11:23)
[2018-11-16] MEDS ORDERED: DEXAMETHASONE 10 MG/ML (DECADRON) 1 ML VIAL IV ONE (11:30)
[2018-11-16] MEDS ORDERED: NS IV 500 ML 500 ML IV SCH (11:40)
[2018-11-16 12:24] VITALS: BP 137/82
== END 2018-11-16 12:24 | disposition home or self-care (01) ==
LOC: EDUNIT# 09:25 → ER 09:26
DX: S16.1XXA Strain of muscle, fascia and tendon at neck level, initial encounter (principal); R42 Dizziness and giddiness; I10 Essential (primary) hypertension; E78.00 Pure hypercholesterolemia, unspecified; Z88.2 Allergy status to sulfonamides; Z79.82 Long term (current) use of aspirin; Z87.891 Personal history of nicotine dependence; X58.XXXA Exposure to other specified factors, initial encounter
CPT/HCPCS: 36415; 70450; 71045; 80053; 81000; 83735; 84484; 85025; 85379; 85652; 86141; 93005

== ENCOUNTER 2018-11-23 14:16 | Outpatient (CLI) | payer MEDICARE ==
[~2018-11-23] VITALS: Ht 154 cm; Wt 60.7 kg
[2018-11-23] MEDS ORDERED: ASCO500C17 PO (14:30)
[2018-11-23] MEDS ORDERED: LOSA1TAB23 PO (14:30)
[2018-11-23] MEDS ORDERED: CHOL200014 PO (14:30)
[2018-11-23] MEDS ORDERED: ASPI-586 PO (14:30)
[2018-11-23] MEDS ORDERED: MIRA50TA PO (14:30)
== END 2018-11-23 15:30 | disposition home or self-care (01) ==
LOC: PREOP 14:16
PROVIDERS: ATTEND Obstetrics & Gynecology
DX: Z01.818 Encounter for other preprocedural examination (principal)
CPT/HCPCS: 87081

== ENCOUNTER 2018-11-28 06:02 | Day surgery (SDC) | payer MEDICARE ==
[~2018-11-28] VITALS: Ht 154.9 cm; Wt 60.7 kg
[2018-11-28] VITALS (16 sets, daily range): BP systolic 92–156; BP diastolic 45–77
[~2018-11-28 06:02] MED LIST changes: +ASCO500C17 PO; +ASPI-586 PO; +CHOL200014 PO; +MIRA50TA PO
[2018-11-28] MEDS: LACTATED RINGERS 1,000 ML IV PRN ×2 (06:39→08:36)
[2018-11-28] MEDS ORDERED: metroNIDAZOLE 500MG/100ML IVPB 100 ML IV ONE (06:45)
[2018-11-28] MEDS ORDERED: ceFAZolin INJECTION 1,000 MG in WATER (STERILE) FOR INJECTION 10 ML IV ONE (06:45)
[2018-11-28] MEDS ORDERED: CATHETER FLUSH 10 ML SYR IV PRN (06:45)
[2018-11-28] MEDS ORDERED: proPOfol 200 MG/20 ML (DIPRIVAN) VIAL IV ONE (06:50)
[2018-11-28] MEDS ORDERED: fentaNYL INJECTION 100 MCG/2 ML AMP ONE ×2 (06:50→08:45)
[2018-11-28] MEDS ORDERED: LIDOCAINE PF 2% 5 ML (XYLOCAINE) VIAL ONE (06:50)
[2018-11-28] MEDS ORDERED: DEXAMETHASONE 10 MG/ML (DECADRON) 1 ML VIAL ONE (06:50)
[2018-11-28] MEDS ORDERED: ONDANSETRON 4 MG/2 ML (SDV) Z0FRAN ONE (06:50)
[2018-11-28] MEDS ORDERED: BUP/EPI 0.25% 1:200,000 (MARCAINE) 10 ML VIAL IJ ONE (07:00)
[2018-11-28] MEDS ORDERED: VASOPRESSIN INJECTION 20 UNIT/ML VIAL ONE (07:00)
[2018-11-28] MEDS ORDERED: NS (IVPB) 100 ML ONE (07:02)
--- NOTE | 2018-11-28 07:22 | Progress Note-Pre Operative ---
Pre-Operative Progress Note H&P Reviewed The H&P was reviewed, patient examined and no changes noted. Date Seen by Provider: Nov 28, 2018 Time Seen by Provider: 07:20 Date H&P Reviewed: Nov 28, 2018 Time H&P Reviewed: 07:00 Pre-Operative Diagnosis: incomplete uterovaginal prolapse, cystocele, Stress incontinence TYRESE MAR DO Nov 28, 2018 07:22
[2018-11-28] MEDS ORDERED: meTOprolol 5 MG/5 ML (LOPRESSOR) VIAL ONE (08:59)
[2018-11-28] MEDS ORDERED: ROCURONIUM 10 MG/ML 5 ML SYRINGE IV ONE (09:00)
[2018-11-28] MEDS ORDERED: NEOSTIGMINE 3 MG/3 ML VIAL ONE (09:00)
[2018-11-28] MEDS ORDERED: GLYCOPYRROLATE 0.2 MG/ML (ROBINUL) 2 ML VIAL ONE (09:00)
[2018-11-28] MEDS ORDERED: ESTRADIOL VAGINAL CREAM 42.5 GM (ESTRACE) VG ONE (09:56)
[2018-11-28] MEDS ORDERED: SEVOFLURANE (ULTANE) 15 ML INHAL SOLN ONE (10:11)
--- NOTE | 2018-11-28 10:19 | Operative Report ---
Operative Report Date of Procedure/Surgery Nov 28, 2018 Surgeon (s) TYRESE MAR DO [employer] Operator (s): Adam Gutierrez, MS III Post-Operative Diagnosis Incomplete urogenital prolapse, enteropelvic adhesions, cystocele, Stress incontinence Procedure Performed RaTH, BSO, lysis of adhesions, anterior colporrhaphy, Solyx sling Description of Procedure Anesthesia Type: General Estimated blood loss (mL): 50 Specimen(s) collected/removed uterus tubes ovaries Findings of the Procedure small uterus with atrophic ovaries, bilateral tubal cysts 4+ cystocele > 50 degree rotation of urethra Allergies and Home Medications Allergies Coded Allergies: Iodinated Contrast Media (Verified Allergy, Severe, CHEST PAIN, SOB, 11/23/18) Sulfa (Sulfonamide Antibiotics) (Verified Allergy, Severe, HEART PALPATATIONS, 11/23/18) Home Medications Ascorbic Acid 500 Mg Capsule, 500 MG PO DAILY, (Reported) Aspirin 81 Mg Tablet.dr, 81 MG PO DAILY, (Reported) Cholecalciferol (Vitamin D3) 2,000 Unit Tablet, 2,000 UNIT PO DAILY, (Reported) Losartan/Hydrochlorothiazide 1 Each Tablet, 1 EACH PO DAILY, (Reported) Mirabegron 50 Mg Tab.er.24h, 50 MG PO DAILY, (Reported) Patient Home Medication List Home Medication List Reviewed: Yes TYRESE MAR DO Nov 28, 2018 10:19
[2018-11-28] MEDS ORDERED: HYDROmorphone 2 MG/ML VIAL (DILAUDID) IV ONE (10:30)
[2018-11-28] MEDS ORDERED: CHLORASEPTIC LOZENGE MM PRN (10:30)
[2018-11-28] MEDS ORDERED: ONDANSETRON 4 MG/2 ML (SDV) Z0FRAN IVP PRN (10:30)
[2018-11-28] MEDS ORDERED: KETOROLAC 30 MG/ML VIAL ONE (10:34)
[2018-11-28] MEDS: KETOROLAC 15 MG/ML VIAL IVP PRN ×3 (10:36→23:01)
[2018-11-28] MEDS ORDERED: HYDROmorphone 2 MG/ML VIAL (DILAUDID) ONE (10:41)
--- NOTE | 2018-11-28 10:47 | Anesthesia-General Post-Op ---
General Patient Condition Mental Status/LOC: Same as Preop Cardiovascular: Satisfactory Nausea/Vomiting: Absent Respiratory: Satisfactory Pain: Controlled Complications: Absent Post Op Complications Complications None Follow Up Care/Instructions Patient Instructions None needed. Anesthesia/Patient Condition Patient Condition Patient is doing well, no complaints, stable vital signs, no apparent adverse anesthesia problems. No complications reported per nursing. LEE CASTELLANOS CRNA Nov 28, 2018 10:47
--- NOTE | 2018-11-28 11:30 | NUR ---
PT to room 306 via bed accompanied by PACU staff. Report rec'd bedside from Virginia Mayes RN. VS taken, assessment completed. Haas to dependent drainage, patent, draining clear yellow urine. Pt very anxious at this time, but denies pain. Pt and family oriented to room and call light. Fresh ice water provided. Pt requesting to put in dentures, dentures at bedside provided. Calf SCD's on and activated. Pt requesting medication for anxiety, will review orders and contact Dr. Reed if needed.
--- NOTE | 2018-11-28 11:50 | NUR ---
ASSESSMENT COMPLETED. DOING WELL. ABD SOFT. LAP SITES X3 D/I. RIVERA PATENT TO DD WITH SMALL AMOUNT OF CLEAR YELLOW URINE. VAGINAL PACKING IN PLACE. V-PAD DRY. IV PLACED ON PUMP WITH NEW TUBING.
[2018-11-28] MEDS: LACTATED RINGERS 1,000 ML IV SCH ×2 (11:55→16:51)
--- NOTE | 2018-11-28 12:48 | NUR ---
RT NOTIFIED OF PT NEEDING I.S. INITIATED.
[2018-11-28] MEDS ORDERED: FLU QUADRIvalent (5+ YOA) 2019-2020 (AFLURIA) 0.5 ML IM ONE (14:00)
[2018-11-28] MEDS ORDERED: ACETAMINOPHEN 500 MG TAB (TYLENOL) PO SCH (14:00)
--- NOTE | 2018-11-28 14:00 | NUR ---
IV FLUIDS INCREASED TO 500CC/HR/PUMP FOR 500 CC FLUID BOLUS. SITE CLEAR.
--- NOTE | 2018-11-28 15:18 | NUR ---
DR. MAR NOTIFIED OF PT'S URINE OUTPUT OF 80 CC. ALSO INFORMED OF HAVING GIVEN PT A 500 CC LR FLUID BOLUS OVER THE PAST HOUR. ORDER RECEIVED FOR HCTZ 25 MG P.O. PLAN OF CARE REVIEWED WITH PT AND S.O.
[2018-11-28] MEDS ORDERED: HYDROCHLOROTHIAZIDE 25 MG (HCTZ) TAB PO NR (15:30)
--- NOTE | 2018-11-28 16:00 | NUR ---
PT HAS MAINTAINED SPO2 WELL ON ROOM AIR THIS SHIFT. PLEASANT AFFECT. CONTINUING TO MONITOR CLOSELY.
--- NOTE | 2018-11-28 17:00 | NUR ---
VSS. YOLANDA CARE PERFORMED WITH PAD CHANGE. SCANT BLEEDING. VAGINAL PACK REMAINS INTACT WITH PINKISH RED BLOOD ON TAIL OF PACKING. TURNED WITH MINIMAL ASSISTANCE TO RIGHT SIDE. URINE OUTPUT 40 CC AT THIS TIME.
--- NOTE | 2018-11-28 17:20 | NUR ---
DR. MAR NOTIFIED OF URINE OUTPUT CONTINUING TO BE DECREASED. ORDER TO GIVE ANOTHER 500 CC LR FLUID BOLUS.
--- NOTE | 2018-11-28 17:30 | NUR ---
IV FLUID BOLUS INITIATED PER DR. MAR ORDER.
--- NOTE | 2018-11-28 18:30 | NUR ---
EATING DINNER. FRIEND AND S.O. AT BEDSIDE.
--- NOTE | 2018-11-28 19:25 | NUR ---
DR. MAR NOTIFIED OF URINE OUTPUT SINCE ARRIVAL TO THIS UNIT OF 170 MLS. LATEST BP REVIEWED. ORDER RECEIVED FOR CBC AND BMP.
--- NOTE | 2018-11-28 19:40 | NUR ---
Rn to room, pt sitting up in bed towards right side watching tv with friend at bedside. pt denies pain, BS present x4, pt denies passing flatus but is belching. jack cath to dd, clear/yellow urine noted. 20cc out since this shift. plan of care reviewed with pt.
[2018-11-28] MEDS: DOCUSATE SODIUM 100 MG (COLACE) CAP PO SCH (19:43)
--- NOTE | 2018-11-28 19:57 | NUR ---
lab called regarding new stat orders.
[2018-11-28 20:21] LABS: BASOPHILS % (AUTO) 0 % (0-10); EOSINOPHILS % (AUTO) 0 % (0-10); HEMATOCRIT 35 % (35-52); HEMOGLOBIN 11.9 G/DL (11.5-16.0); LYMPHOCYTES % (AUTO) 9 % (12-44); MEAN CORPUSCULAR HEMOGLOBIN 32 PG (25-34); MEAN CORPUSCULAR HGB CONC 34 G/DL (32-36); MEAN CORPUSCULAR VOLUME 93 FL (80-99); MEAN PLATELET VOLUME 10.3 FL (7.4-10.4); MONOCYTES # (AUTO) 0.4 X 10^3 (0.0-1.0); MONOCYTES % (AUTO) 3 % (0-12); NEUTROPHILS # (AUTO) 9.3 X 10^3 (1.8-7.8); NEUTROPHILS % (AUTO) 88 % (42-75); PLATELET COUNT 215 10^3/uL (130-400); RED CELL DISTRIBUTION WIDTH 14.1 % (10.0-14.5); WHITE BLOOD COUNT 10.6 10^3/uL (4.3-11.0)
--- NOTE | 2018-11-28 20:27 | NUR ---
pt sitting up in bed, assisted pt with diming the lights in room, friend to spend the night, fresh ice water given.
[2018-11-28 20:38] LABS: BUN/CREATININE RATIO 11; CALCIUM 8.7 MG/DL (8.5-10.1); CARBON DIOXIDE 24 MMOL/L (21-32); CHLORIDE 99 MMOL/L (98-107); GFR ESTIMATED > 60; GLUCOSE 142 MG/DL (70-105); SODIUM 130 MMOL/L (135-145)
--- NOTE | 2018-11-28 20:49 | NUR ---
dr. calabrese notified of bmp results, new orders received.
--- NOTE | 2018-11-28 20:59 | NUR ---
lab called regarding cbc results still pending.
[2018-11-28] MEDS ORDERED: FUROSEMIDE 40 MG/4 ML INJ (LASIX) IVP ONE (21:00)
--- NOTE | 2018-11-28 21:02 | NUR ---
dr. calabrese notified of cbc results, urine output of 30cc since 1899 urine clear/yellow in color at this time, pt denies pain, abdomen soft and non tender. pt cont to use IS every 2hours while awake.
[2018-11-28] MEDS ORDERED: NS IV 1000 ML 1,000 ML ONE (21:05)
[2018-11-28] MEDS: NS IV 1000 ML 1,000 ML IV SCH (21:12)
--- NOTE | 2018-11-28 23:00 | NUR ---
pt resting in bed, denies pain. urine output increased to a total of 475cc for this shift. urine clear/ light yellow in color, no odor noted. Friend remains at bedside. VSS.
--- NOTE | 2018-11-29 01:00 | NUR ---
pt resting with eyes closed, aroused per rn, denies needs at this time, adequate output noted. friend remains at bedside.
[2018-11-29 02:59] VITALS: BP 112/54
--- NOTE | 2018-11-29 03:00 | NUR ---
pt awake in bed, vss, denies pain, fresh ice water given. adequate urine output noted in jack chamber. Friend remains at bedside.
[2018-11-29] MEDS: NS IV 1000 ML 1,000 ML IV SCH ×2 (03:37→11:20)
[2018-11-29] MEDS: KETOROLAC 15 MG/ML VIAL IVP PRN ×2 (04:57→12:11)
--- NOTE | 2018-11-29 05:00 | NUR ---
RN to room, pt feeling the need to have bowel movement, stand by assist with pt to bathroom, vag packing dc'd. no bm noted, pericare demonstrated and given, clean gown in place, pt back to bed. calf scd'b back on abby calf.
--- NOTE | 2018-11-29 06:25 | NUR ---
pt sitting up in bed watching tv, marcie bal given. pt states is passing flatus now, denies pain. Pt to call to get up to void.
[2018-11-29] MEDS ORDERED: FLU QUADRIvalent (5+ YOA) 2019-2020 (AFLURIA) 0.5 ML IM ONE (07:53)
[2018-11-29] MEDS: DOCUSATE SODIUM 100 MG (COLACE) CAP PO SCH (07:57)
[2018-11-29 08:00] VITALS: BP 97/50
--- NOTE | 2018-11-29 08:00 | NUR ---
A.M. ASSESSMENT COMPLETED. VSS. ATTEMPT TO VOID IN THE BATHROOM WITHOUT SUCCESS. OUT TO AMBULATE IN THE [place] WITH STANDBY ASSISTANCE. INITIALLY C/O SLIGHT VERTIGO BUT RESOLVED. STATES HAS BEEN HAVING SOME VERTIGO BEFORE SURGERY AT HOME. AMBULATED FULL LOOP OF PP AREA WITHOUT PROBLEMS. BACK TO SIT IN CHAIR. CALL LIGHT PLACED WITHIN REACH.
--- NOTE | 2018-11-29 08:02 | NUR ---
FLU VACCINE GIVEN IM IN LEFT DELTOID. SITE CLEAR.
--- NOTE | 2018-11-29 08:50 | NUR ---
DR. MAR HERE TO SEE PT. PLAN TO DISCHARGE TODAY AFTER VOIDS.
--- NOTE | 2018-11-29 10:15 | NUR ---
UP TO THE BATHROOM. NO VOID.
[2018-11-29] MEDS ORDERED: IBUPROFEN 600 MG (MOTRIN) TAB PO ONE (10:47)
--- NOTE | 2018-11-29 10:57 | Progress Note ---
Objective Exam Vital Signs Date Time Temp Pulse Resp B/P (MAP) Pulse Ox O2 Delivery O2 Flow Rate FiO2 11/29/18 02:59 36.9 60 16 112/54 (73) 94 Room Air 11/28/18 23:00 37.6 72 16 110/57 (74) 96 Room Air 11/28/18 19:41 37.0 68 16 99/59 (72) 95 Room Air 11/28/18 17:00 36.7 58 18 113/61 (78) 96 Room Air 11/28/18 15:00 36.8 68 18 95/55 (68) 98 Room Air 11/28/18 14:00 37.2 61 16 99/60 (73) 97 Room Air 11/28/18 13:01 37.2 61 16 92/54 (67) 94 Room Air 11/28/18 12:08 36.8 56 16 101/45 (63) 95 Room Air 11/28/18 11:30 36.5 61 16 106/63 (77) 99 Room Air 11/28/18 11:20 OxyMask 2 11/28/18 11:20 36.4 14 112/56 (74) 100 OxyMask 2 11/28/18 11:10 25 129/61 (83) 98 OxyMask 2 11/28/18 11:05 OxyMask 2 11/28/18 11:00 14 115/60 (78) 100 OxyMask 2 I & O 11/29/18 07:00 Intake Total 5530 ml Output Total 1290 ml Balance 4240 ml Capillary Refill : Less Than 3 Seconds Results Lab Laboratory Tests 11/28/18 20:10: White Blood Count 10.6, Red Blood Count 3.75L, Hemoglobin 11.9, Hematocrit 35, Mean Corpuscular Volume 93, Mean Corpuscular Hemoglobin 32, Mean Corpuscular Hemoglobin Concent 34, Red Cell Distribution Width 14.1, Platelet Count 215, Mean Platelet Volume 10.3, Neutrophils (%) (Auto) 88H, Lymphocytes (%) (Auto) 9L , Monocytes (%) (Auto) 3, Eosinophils (%) (Auto) 0, Basophils (%) (Auto) 0, Neutrophils # (Auto) 9.3H, Lymphocytes # (Auto) 1.0, Monocytes # (Auto) 0.4, Eosinophils # (Auto) 0.0, Basophils # (Auto) 0.0, Sodium Level 130L, Potassium Level 4.0, Chloride Level 99, Carbon Dioxide Level 24, Anion Gap 7, Blood Urea Nitrogen 10, Creatinine 0.90, Estimat Glomerular Filtration Rate > 60, BUN/Creatinine Ratio 11, Glucose Level 142H, Calcium Level 8.7 Clinical Quality Measures DVT/VTE Risk/Contraindication: Risk Factor Score Per Nursin RFS Level Per Nursing on Admit: 4+=Very High TYRESE MAR DO Nov 29, 2018 10:56
[2018-11-29] MEDS ORDERED: ACET-77 PO (10:58)
[2018-11-29] MEDS ORDERED: IBUP-844 PO (10:58)
--- NOTE | 2018-11-29 11:00 | Discharge Inst-Women's Service ---
Discharge Inst-Women's Serv Depart Medication/Instructions New, Converted or Re-Newed RX: Transmitted to Pharmacy Instructions no lifting over 10 lbs, no driving for 1 week or until no pain, nothing in the vagina for 12 weeks, no baths, no tubs, no swimming Expect light bleeding, spotting for up to two weeks Final Diagnosis genital prolapse cystocele stress incontinence Problems Reviewed?: Yes Consults/Follow Up Additional Follow Up: Yes (1 week with Audrey and 12 weeks) Activity Activity: Activity as Tolerated Driving Instructions: No Driving for 1 Week NO SMOKING: NO SMOKING Nothing Inside Vagina: No Douching, No [place], No Tampons Diet Discharge Diet: No Restrictions Symptoms to Report to : Swelling Increased, Bleeding Excessive, Fever Over 101 Degrees F, Vaginal Bleeding Increase, Cramps in Feet or Legs, Vaginal Discharge Foul For Any Problems or Questions: Contact Your Physician Skin/Wound Care Infection Signs and Symptoms: Increased Redness, Foul Odor of Wound, Increased Drainage, Skin Itchy or Has a Rash, Increased Swelling, Temperature Above 101 F Operative Area Clean and Dry: You May Remove Bandage (in 3 days) Stitches/[place]/Dermabond: Dermabond Bathing Instructions: TYRESE Medina DO Nov 29, 2018 11:00
[2018-11-29] MEDS ORDERED: DOCU-143 PO (11:02)
--- NOTE | 2018-11-29 11:30 | NUR ---
RESTING IN BED. WILL HAVE TO STRAIGHT CATH IF UNABLE TO VOID. PT HAS TRIED AGAIN BUT PUT SELF BACK TO BED WITH STANDBY ASSIST OF S.O. TO TRY TO RELAX AND REST.
[2018-11-29 12:00] VITALS: BP 145/65
--- NOTE | 2018-11-29 12:15 | NUR ---
VOIDED 110 CC CLEAR [place] URINE.
--- NOTE | 2018-11-29 12:30 | NUR ---
DR. MAR NOTIFIED OF PT VOIDING 110 CC. ORDER TO DISMISS.
--- NOTE | 2018-11-29 12:45 | NUR ---
IV D/C'ED. SITE CLEAR. PREPARING FOR DISCHARGE.
[2018-11-29 13:35] VITALS: BP 117/56
--- NOTE | 2018-11-29 13:45 | NUR ---
DISCHARGE INSTRUCTIONS REVIEWED WITH COPY TO PT. STATES UNDERSTANDING OF ALL INSTRUCTIONS AND NEED TO F/U SCHEDULED AND NEEDED.
[2018-11-29 13:55] VITALS: BP 117/56
--- NOTE | 2018-11-29 13:55 | NUR ---
DISMISSED FROM [facility] VIA W/C TO FAMILY CAR IN STABLE CONDITION ACC BY Markus VELÁSQUEZ, AND DAV BURTON.
[2018-12-03] MEDS ORDERED: IBUPROFEN 600 MG (MOTRIN) TAB PO SCH (12:00)
== END 2018-11-29 13:55 | disposition home or self-care (01) ==
LOC: SDC 06:02 → WS 11:46 → SDC 11-29 13:55
PROVIDERS: ATTEND Obstetrics & Gynecology
DX: N72 Inflammatory disease of cervix uteri (principal); N80.0 Endometriosis of uterus; N83.312 Acquired atrophy of left ovary; N83.311 Acquired atrophy of right ovary; N83.292 Other ovarian cyst, left side; N81.2 Incomplete uterovaginal prolapse; N39.3 Stress incontinence (female) (male); I10 Essential (primary) hypertension; E78.2 Mixed hyperlipidemia; K21.9 Gastro-esophageal reflux disease without esophagitis; F32.9 Major depressive disorder, single episode, unspecified; F41.9 Anxiety disorder, unspecified; Z91.041 Radiographic dye allergy status; Z88.2 Allergy status to sulfonamides; Z79.82 Long term (current) use of aspirin; Z79.899 Other long term (current) drug therapy; Z82.49 Family history of ischemic heart disease and other diseases of the circulatory system; Z87.891 Personal history of nicotine dependence
CPT/HCPCS: 36415; 80048; 85025; 86850; 86900; 86901; 88305; 94664

== ENCOUNTER → 2019-08-13 | Outpatient (CLI) | payer MEDICARE ==
[~2019-08-13] MED LIST changes: +ACET-78 PO; +DOCU-143 PO; +IBUP-844 PO
--- NOTE | 2019-08-13 16:53 | Diagnostic Imaging Report ---
PROCEDURE: US carotid duplex, bilateral. TECHNIQUE: Multiple real-time grayscale images were obtained over the carotid arteries in various projections, bilaterally. Additional spectral analysis and color Doppler duplex images were also obtained. INDICATION: Hypertension, tobacco use, carotid stenosis. COMPARISON: 01/21/2017. FINDINGS: Parameters based on the consensus panel Leo-Scale and Doppler ultrasound criteria published December 2002, Radiology, Volume 229. DOPPLER (peak systolic velocity M/S Right Left CCA .83 .75 ICA Proximal .64 .77 ICA Mid .83 .82 ICA Distal .91 .93 RATIO 1.1 1.2 ECA .95 .63 VERT .33 .58 Right carotid circulation: There is mild plaque formation in the right carotid bifurcation. Based on grayscale images and flow velocity criteria, there is mild stenoses (<50%) of the right internal carotid artery. Left carotid circulation: There is mild plaque formation in the left carotid bifurcation. Based on grayscale images and flow velocity criteria, there is mild stenoses (<50%) of the left internal carotid artery. Flow in the bilateral vertebral arteries is antegrade. IMPRESSION: 1. Mild (<50%) stenosis of the right internal carotid artery. 2. Mild (<50%) stenosis of the left internal carotid artery. Society of Radiologist in Ultrasound Consensus: Normal: ICA PSV is <125 cm/sec and no plaque or intimal thickening is visible sonographically ICA/CCA PSV ratio <2.0 ICA EDV <40 cm/sec Mild (<50% ICA stenosis): ICA PSV is <125 cm/sec and plaque or intimal thickening is visible sonographically ICA/CCA PSV ratio <2.0 ICA EDV <40 cm/sec Moderate (50-69% ICA stenosis) ICA PSV is 125-230 cm/sec and plaque is visible sonographically ICA/CCA PSV ratio of 2.0-4.0 ICA EDV of 40-100 cm/sec Severe (?70% ICA stenosis but less than near occlusion): ICA PSV is >230 cm/sec and visible plaque and luminal narrowing are seen at leo-scale and color Doppler ultrasound (the higher the Doppler parameters lie above the threshold of 230 cm/sec, the greater the likelihood of severe disease) ICA/CCA PSV ratio >4 ICA EDV >100 cm/sec Near occlusion of the ICA Velocity parameters may not apply, since velocities may be high, low, or undetectable Markedly narrowed lumen at color or power Doppler ultrasound Total occlusion of the ICA: No detectable patent lumen at leo-scale ultrasound and no flow with spectral, power, and color Doppler ultrasound May be compensatory increased velocity in the contralateral carotid Dictated by: Dictated on workstation # [id number]
== END ==
LOC: RAD 14:22
PROVIDERS: ATTEND Family Medicine
DX: I65.23 Occlusion and stenosis of bilateral carotid arteries (principal); I10 Essential (primary) hypertension; Z72.0 Tobacco use
CPT/HCPCS: 93880

== ENCOUNTER → 2019-09-27 | Outpatient (CLI) | payer MEDICARE ==
--- NOTE | 2019-09-27 10:23 | Diagnostic Imaging Report ---
INDICATION: Hypertension, screening for abdominal aortic aneurysm. The proximal aorta is borderline ectatic/aneurysmal measuring 2.7 cm AP by 3.0 cm transverse. Midabdominal aorta measures 2.2 cm AP by 2.5 cm transverse. Distal abdominal aorta measures 1.6 cm AP by 1.8 cm transverse. The right iliac measures 1.2 x 1.0 cm and the left iliac measures 1.0 x 0.8 cm. No periaortic fluid is identified. IMPRESSION: Borderline aneurysmal dilatation of the proximal abdominal aorta. Dictated by: Dictated on workstation # [id number]
== END ==
LOC: RAD 06:33
PROVIDERS: ATTEND Physician Assistant
DX: R07.89 Other chest pain (principal); I65.29 Occlusion and stenosis of unspecified carotid artery; K21.9 Gastro-esophageal reflux disease without esophagitis; I10 Essential (primary) hypertension; I77.811 Abdominal aortic ectasia
CPT/HCPCS: 76775

== ENCOUNTER → 2019-10-25 | Outpatient (CLI) | payer MEDICARE ==
--- NOTE | 2019-10-25 13:28 | Diagnostic Imaging Report ---
PROCEDURE: CT chest without contrast. TECHNIQUE: Multiple contiguous axial images were obtained through the chest without the use of intravenous contrast. Auto Exposure Controls were utilized during the CT exam to meet ALARA standards for radiation dose reduction. INDICATION: Shortness of breath. FINDINGS: The previous CT chest exam of 07/25/2018 noted mild emphysematous changes involving both lungs but failed to show any sign of an acute abnormality. There was a faint sub-solid 9 mm micronodule within the left upper lobe and a stable micronodular density in the superior segment of the right lower lobe. On this study, the vague density in the periphery of the left upper lobe seen previously is again evident and does measure slightly larger at 13 mm. The 1.6 mm micronodule in the posterior aspect of the superior segment of the right lower lobe seen previously appears unchanged (image 78 series 3). There is also a 2.8 mm parenchymal density in the right mid lung (series 3 image 71). This finding was not clearly evident on the prior exam and has a generally benign appearance. There is no sign of failure, pneumonia, or pleural effusion to indicate an acute abnormality. The heart is stable in size. Coronary artery calcifications are again noted. The aorta is not abnormally dilated. There is no obvious mediastinal or hilar adenopathy. The thyroid gland where visualized is unremarkable. There is no definite breast mass noted. The sections through the upper abdomen failed to show any sign of an acute abnormality. The bone windows are unremarkable for an acute fracture or for a destructive lesion. IMPRESSION: 1. The vague parenchymal density along the periphery of the left upper lung seen on the prior exam does measure somewhat greater on this study. This finding does not have an aggressive appearance but its precise etiology is unclear. A short-term (three-month) follow-up CT chest exam will be recommended for further study. 2. The micronodule in the right lung base seen previously is again evident and no different. The new density in the right mid lung is most likely a benign process. This could also be further evaluated on the follow-up exam. 3. There is no acute cardiopulmonary abnormality noted. Dictated by: Dictated on workstation # [id number]
== END ==
LOC: RAD 11:45
PROVIDERS: ATTEND Internal Medicine Critical Care Medicine
DX: J98.4 Other disorders of lung (principal); R92.8 Other abnormal and inconclusive findings on diagnostic imaging of breast; R92.1 Mammographic calcification found on diagnostic imaging of breast; F17.201 Nicotine dependence, unspecified, in remission
CPT/HCPCS: 71250

== ENCOUNTER → 2019-11-12 | Outpatient (CLI) | payer MEDICARE ==
[~2019-11-12] MED LIST changes: +ASPI-999 PO; +CHOL20002 PO
== END ==
LOC: LABNPT 05:46
PROVIDERS: ATTEND Internal Medicine Critical Care Medicine
DX: Z01.812 Encounter for preprocedural laboratory examination (principal); Z20.828 Contact with and (suspected) exposure to other viral communicable diseases

== ENCOUNTER 2019-11-13 05:28 | Outpatient (RCR) | payer MEDICARE ==
[~2019-11-13] VITALS: Ht 154 cm; Wt 57.2 kg
== END 2019-11-13 10:40 | disposition home or self-care (01) ==
LOC: PREOP 05:28
PROVIDERS: ATTEND Internal Medicine Critical Care Medicine
DX: J44.9 Chronic obstructive pulmonary disease, unspecified (principal); F17.201 Nicotine dependence, unspecified, in remission; Z20.828 Contact with and (suspected) exposure to other viral communicable diseases
CPT/HCPCS: 87635

== ENCOUNTER 2019-11-15 07:19 | Day surgery (SDC) | payer MEDICARE ==
[2019-11-15] VITALS (12 sets, daily range): BP systolic 110–184; BP diastolic 56–86
[~2019-11-15] VITALS: Ht 154.9 cm; Wt 59.4 kg
[2019-11-15] MEDS ORDERED: LIDOCAINE PF 2% 5 ML (XYLOCAINE) VIAL INJ ONE (07:20)
[2019-11-15] MEDS ORDERED: LIDOCAINE JELLY 2% 6 ML SYRINGE MM ONE (07:20)
[2019-11-15] MEDS ORDERED: LIDOCAINE PF 1% 2 ML AMP IJ ONE (07:20)
[2019-11-15] MEDS ORDERED: NS IV 1000 ML 1,000 ML IV STA (07:34)
[2019-11-15] MEDS ORDERED: NS IV 500 ML 500 ML ONE (07:41)
[2019-11-15] MEDS ORDERED: MIDAZOLAM 5 MG/5 ML (VERSED) VIAL IV ONE (07:45)
[2019-11-15] MEDS ORDERED: fentaNYL INJECTION 100 MCG/2 ML AMP IVP ONE (07:45)
[2019-11-15] MEDS ORDERED: MIDAZOLAM 5 MG/5 ML (VERSED) VIAL ONE (08:57)
[2019-11-15] MEDS ORDERED: fentaNYL INJECTION 100 MCG/2 ML AMP ONE (08:57)
--- NOTE | 2019-11-15 09:45 | Progress Note-Pre Operative ---
Pre-Operative Progress Note H&P Reviewed The H&P was reviewed, patient examined and no changes noted. Time Seen by Provider: 09:45 Date H&P Reviewed: Nov 15, 2019 Time H&P Reviewed: 09:45 Pre-Operative Diagnosis: lung nodule, cough MARCELO FUCHS DO Nov 15, 2019 09:45
--- NOTE | 2019-11-15 09:45 | Pulmonary Procedures ---
Pulmonary Procedures Date of Procedure Date of Service: Nov 15, 2019 Bronch Bronchoscopy with mainstem janeen brush, bilateral wash ANYA bronchoalveolar lavage (BAL), Transbronchial ANYA brushes using fleuoscopy. Preop DX Cough, lung nodule Postop DX: same Complications: none After informed consent obtained and formal time out pt was sedated using Fentanyl and Versed. Bronchoscope was advanced through the nare and vocal cords. 1% lidocaine was used to anesthetize vocal cords, epiglottis, janeen, and left/right main stem bronchus. An anatomical tour was undertaken down to the segmental bronchi bilaterally. No endobronchial lesions noted. Bronchoscopy with mainstem janeen brush, bilateral wash ANYA bronchoalveolar lavage (BAL), Transbronchial ANYA brushes using fleuoscopy. were obtained. Pt tolerated procedure well. No complications noted. Stat CXR is pending. MARCELO FUCHS DO Nov 15, 2019 09:45
--- NOTE | 2019-11-15 09:46 | Pre-Op Note & Conscious Sedat ---
Pre-Operative Progress Note H&P Reviewed The H&P was reviewed, patient examined and no changes noted. Date H&P Reviewed: Nov 15, 2019 Time H&P Reviewed: 09:46 Conscious Sedation Pre-Proced Time 09:45 ASA Score 3 For ASA 3 and 4: Consider anesthesia and medical clearance. Also, for patients with a history of failed moderate sedation consider anesthesia. Airway Lungs Heart ASA score ASA 1: a normal healthy patient ASA 2: a patient with a mild systemic disease (mid diabetes, controlled hypertension, obesity ASA 3: a patient with a severe systemic disease that limits activity (angina, COPD, prior Myocardial infarction) ASA 4: a patient with an incapacitating disease that is a constant threat to life (CHF, renal failure) ASA 5: a moribund patient not expected to survive 24 hrs. (ruptured aneurysm) ASA 6: a declared brain- patient whose organs are being harvested. For emergent operations, add the letter E after the classification Mallampati Classification Grade 3 Sedation Plan Analgesia, Amnesia, Plan communicated to team members, Discussed options with patient/fam, Discussed risks with patient/fam The patient is an appropriate candidate to undergo the planned procedure, sedation, and anesthesia. The patient immediately re-assessed prior to indication. MARCELO FUCHS DO Nov 15, 2019 09:46
--- NOTE | 2019-11-15 10:14 | Diagnostic Imaging Report ---
INDICATION: Post bronchoscopy. Frontal chest obtained at 10:04 a.m. and compared to 11/16/2018 FINDINGS: Heart and mediastinal silhouette are normal in appearance. Lungs are clear. There is hyperinflation compatible with COPD. IMPRESSION: COPD changes with no acute process in the chest. No pneumothorax or pleural fluid following bronchoscopy. Dictated by: Dictated on workstation # [id number]
--- NOTE | 2019-11-15 11:40 | Diagnostic Imaging Report ---
INDICATION: Bronchoscopy. COMPARISON: CT chest dated 10/25/2019 Total fluoroscopy time: 10 seconds Total number of fluoroscopic images obtained: 1 FINDINGS: Single intraoperative image intensifier view of the left chest was obtained during bronchoscopy. Bronchoscope is noted about the left hilum. Evaluation for pneumothorax is suboptimal given fluoroscopic modality. IMPRESSION: 1. Fluoroscopic guidance provided during bronchoscopy. Dictated by: Dictated on workstation # [id number]
== END 2019-11-15 10:20 | disposition home or self-care (01) ==
LOC: ENDO 07:19
PROVIDERS: ATTEND Internal Medicine Critical Care Medicine
DX: R91.1 Solitary pulmonary nodule (principal); J30.9 Allergic rhinitis, unspecified; I10 Essential (primary) hypertension; E78.2 Mixed hyperlipidemia; Z79.82 Long term (current) use of aspirin; R07.89 Other chest pain; Z88.2 Allergy status to sulfonamides; Z91.041 Radiographic dye allergy status; Z87.891 Personal history of nicotine dependence; Z80.8 Family history of malignant neoplasm of other organs or systems
CPT/HCPCS: 71045; 76000; 87015; 87070; 87101; 87116; 87205; 87206; 94640

== ENCOUNTER → 2019-12-11 | Outpatient (CLI) | payer MEDICARE ==
--- NOTE | 2019-12-11 18:23 | Diagnostic Imaging Report ---
EXAMINATION: PA and lateral chest at 1:55 PM INDICATION: Chest pain The heart size is within normal limits and stable when compared to 11/15/2019. The lungs are clear. There is no sign of failure, pneumonia or pleural effusion. The chronic pulmonary changes seen on the prior study are again visualized and no different. The mediastinum is not widened. The osseous structures are intact. IMPRESSION: There is no evidence for active disease. Dictated by: Dictated on workstation # [id number]
== END ==
LOC: RAD 13:41
PROVIDERS: ATTEND Nurse Practitioner Family
DX: R06.89 Other abnormalities of breathing (principal)
CPT/HCPCS: 71046

== ENCOUNTER → 2020-02-12 | Outpatient (CLI) | payer MEDICARE ==
--- NOTE | 2020-02-12 13:01 | Diagnostic Imaging Report ---
INDICATION: Routine screening. Comparison is made with prior mammogram 10/13/2016 and 12/27/2014. 2-D and 3-D bilateral screening mammography was performed with CAD. Scattered fibroglandular densities are identified bilaterally. The parenchymal pattern is stable. No dominant mass or malignant appearing microcalcifications are seen. Axillae are unremarkable. IMPRESSION: BI-RADS Category 1 No mammographic features suspicious for malignancy are identified. ACR BI-RADS Category 1: Negative. Result letter will be mailed to the patient. Note: At least 10% of breast cancer is not imaged by mammography. Dictated by: Dictated on workstation # [id number]
--- NOTE | 2020-02-12 14:29 | Diagnostic Imaging Report ---
INDICATION: Postmenopausal screening COMPARISON: 02/24/2010 FINDINGS: AP Spine L1-L4: [BMD (g/cm2): 0.945] [T-Score: -2.1] [Z-Score: 0.0] [BMD Previous: 1.097] [BMD % Change: -13.9] LT Hip Neck: [BMD (g/cm2): 0.713] [T-Score: -2.3] [Z-Score: -0.1] LT Hip Total: [BMD (g/cm2):0.712] [T-Score:-2.3] [Z-Score: -0.2] [BMD Previous: 0.786] [BMD % Change: -9.4] RT Hip Neck: [BMD (g/cm2):0.632] [T-Score:-2.9] [Z-Score:-0.7] RT Hip Total: [BMD (g/cm2):0.665] [T-score:-2.7] [Z-Score:-0.6] [BMD Previous:0.768] [BMD % Change:-13.4] *Indicates significant change from prior examination based on 95% confidence level. World Health Organization criteria for BMD interpretation classify patients as Normal (T-score at or above -1.0), Osteopenic (T-score between -1.0 and -2.5) or Osteoporotic (T-score at or below -2.5). LIMITATIONS AND MODIFICATION: None. FRACTURE RISK (FRAX SCORE): The ten year probability of (%): Major Osteoporotic Fracture: [22.2] Hip Fracture: [9.0] IMPRESSION: 1. Osteoporosis. 2. Bone mineral density has decreased by a statistically significant amount, as detailed above. 3. See below National Osteoporosis Foundation guidelines on when to potentially initiate pharmacologic therapy. Based on the National Osteoporosis Foundation Guidelines, pharmacologic treatment should be initiated in any of the following, unless clinical conditions suggest otherwise: * Any patient with prior fragility fracture of the hip or vertebrae. A spine fracture indicates 5X risk for subsequent spine fracture and 2X risk for subsequent hip fracture. * Osteoporosis (T-score <-2.5). * Postmenopausal women and men age 50 and older with low bone mass/osteopenia (T-score between -1.0 and -2.5) by DXA and 10-year major osteoporotic fracture greater than 20% or a 10-year probability of hip fracture greater than 3%. These fracture risks are supplied above in the FRAX score, if applicable. * Clinician judgement and/or patient preferences may indicate treatment for people with 10-year fracture probabilities above or below these levels. Dictated by: Dictated on workstation # [id number]
== END ==
LOC: RAD 10:37
PROVIDERS: ATTEND Family Medicine
DX: Z12.31 Encounter for screening mammogram for malignant neoplasm of breast (principal); Z13.820 Encounter for screening for osteoporosis; M81.0 Age-related osteoporosis without current pathological fracture; Z78.0 Asymptomatic menopausal state
CPT/HCPCS: 77063; 77067; 77080

== ENCOUNTER → 2020-02-12 | Outpatient (CLI) | payer MEDICARE ==
--- NOTE | 2020-02-12 12:00 | Diagnostic Imaging Report ---
PROCEDURE: CT chest without contrast. TECHNIQUE: Multiple contiguous axial images were obtained through the chest without the use of intravenous contrast. Auto Exposure Controls were utilized during the CT exam to meet ALARA standards for radiation dose reduction. A groundglass nodule in the left upper lobe is about 7 mm on followup without soft tissue component or suspicious finding. Heterogeneous air trapping and centrilobular emphysema chronic there are few subcentimeter subpleural micronodules showing long-term stability. There has been no adverse interval development. Findings today unchanged from studies dating back to June 2018. No thoracic adenopathy. Calcified aorta is nonaneurysmal. Upper abdomen showed no acute finding. IMPRESSION: No suspicious or dominant mass. No interval change. Subcentimeter subsolid groundglass nodule left upper lobe laterally, unchanged over 6 months time, very likely benign. A repeat exam in 6-12 months suggested. No acute abnormality or adverse development. Dictated by: Dictated on workstation # [id number]
== END ==
LOC: RAD 10:32
PROVIDERS: ATTEND Nurse Practitioner Family
DX: J44.9 Chronic obstructive pulmonary disease, unspecified (principal); R91.1 Solitary pulmonary nodule; F17.201 Nicotine dependence, unspecified, in remission
CPT/HCPCS: 71250

== ENCOUNTER → 2020-08-01 | Outpatient (CLI) | payer MEDICARE ==
--- NOTE | 2020-08-01 12:58 | Diagnostic Imaging Report ---
PROCEDURE: CT chest without contrast. TECHNIQUE: Multiple contiguous axial images were obtained through the chest without the use of intravenous contrast. Auto Exposure Controls were utilized during the CT exam to meet ALARA standards for radiation dose reduction. INDICATION: COPD, pulmonary nodule COMPARISONS: 02/12/2020, 10/25/2019, 07/25/2018, and 05/18/2018 FINDINGS: No significant adenopathy within the chest. Scattered vascular calcifications without aneurysmal dilatation of the thoracic aorta. Calcifications within the coronary arteries. The heart is within normal limits in size. No pericardial effusion. No pleural effusion. No pneumothorax. Sub-solid groundglass left upper lobe pulmonary nodule is present measuring 1.2 cm in greatest dimension. This appears stable from the prior examination and not significantly changed since 05/18/2018. Additional scarring and/or atelectasis within the anterior aspect of the left upper lobe. 0.7 cm pulmonary nodule is present within the anterior aspect of the right upper lobe. This has essentially developed since the prior examination, series 3, image 48. Minimal scarring and/or atelectasis within the right middle lobe. Additional sub-zero 0.4 cm pulmonary nodules in the lungs bilaterally appear unchanged. The trachea is clear. Hypodensity within the medial aspect of the left kidney and posterior aspect of the left kidney are again identified though not completely characterized on this examination. The visualized upper abdomen is otherwise unremarkable. No acute osseous abnormality. IMPRESSION: New 0.7 cm solid right upper lobe pulmonary nodule is indeterminate, though is suspicious. Follow-up CT of the chest is recommended in 3 months to reevaluate. Given size, PET CT would likely not be beneficial. Essentially stable groundglass 1.2 cm pulmonary nodule within the left upper lobe. When measuring in the same plane and dimension, this does not appear significantly changed since April 2018. Follow-up CT in 12 months is recommended. Otherwise, similar examination. Dictated by: Dictated on workstation # [id number]
== END ==
LOC: RAD 11:25
PROVIDERS: ATTEND Family Medicine
DX: J44.9 Chronic obstructive pulmonary disease, unspecified (principal); R91.8 Other nonspecific abnormal finding of lung field
CPT/HCPCS: 71250

== ENCOUNTER → 2020-10-31 | Outpatient (CLI) | payer MEDICARE ==
--- NOTE | 2020-10-31 08:09 | Diagnostic Imaging Report ---
PROCEDURE: CT chest without contrast. TECHNIQUE: Multiple contiguous axial images were obtained through the chest without the use of intravenous contrast. Auto Exposure Controls were utilized during the CT exam to meet ALARA standards for radiation dose reduction. INDICATION: Followup of pulmonary nodule. COMPARISON STUDY: CT of the chest from 08/01/2020. FINDINGS: An 11 mm groundglass nodule in the left upper lobe on axial image #78 is not significantly changed from the previous exam which measured 12 mm. A 5 mm nodule in the right upper lobe is increased 8 mm. This is solid. Given the recent development of this and the enlargement over 3 months, this is worrisome for a tumor. This would be difficult to biopsy due to its size. Due to the small size, PET scan could be equivocal. Recommend a 3 month followup. Remainder of the chest is clear. No pleural or pericardial effusions are present. There is no abnormal adenopathy. Visualized portions of the abdomen are unremarkable. Small cyst left kidney. Arterial sclerosis present with calcification of the aortic valve and coronary arteries. IMPRESSION: 1. There is an enlarging solid right upper lobe mass. This is 8 mm which would be a difficult to get an adequate sample on a biopsy. If this small size size a PET scan may be beneficial but a negative PET scan would not rule out malignancy. Recommend 3 month followup if a PET scan is not performed. Dictated by: Dictated on workstation # [id number]
== END ==
LOC: RAD 08:15
PROVIDERS: ATTEND Nurse Practitioner Family
DX: R91.8 Other nonspecific abnormal finding of lung field (principal)
CPT/HCPCS: 71250

== ENCOUNTER → 2020-10-31 | Outpatient (CLI) | payer MEDICARE ==
--- NOTE | 2020-10-31 07:45 | Diagnostic Imaging Report ---
INDICATION: Abdominal aortic aneurysm Ultrasonography of the abdominal aorta is performed. There is no evidence of aneurysm. Proximal aorta measures 2.4 x 3.1 cm in diameter with the midportion measuring 1.9 x 2.4 cm. Distally the abdominal aorta reaches 1.5 cm in diameter with common iliac arteries measuring up to 0.9 cm in diameter. No retroperitoneal fluid collection or hematoma is identified. IMPRESSION: Proximal aorta is at the upper limits of normal for size without ultrasound evidence of abdominal aortic aneurysm. Dictated by: Dictated on workstation # [id number]
== END ==
LOC: RAD 07:18
PROVIDERS: ATTEND Internal Medicine Cardiovascular Disease
DX: I71.4 Abdominal aortic aneurysm, without rupture (principal)
CPT/HCPCS: 76775

== ENCOUNTER → 2020-11-11 | Outpatient (CLI) | payer MEDICARE ==
--- NOTE | 2020-11-13 11:30 | Diagnostic Imaging Report ---
PET/CT INDICATION: Pulmonary nodule TECHNIQUE: PET/CT imaging was obtained from the base of the skull through the pelvis after the administration of 14.06 mCi of F-18 fluorodeoxyglucose into the right antecubital fossa. Limited CT imaging was utilized for localization and attenuation correction purposes. The low energy CT utilized for attenuation correction is not considered to be of high enough spatial resolution to allow in and of itself a separate anatomical analysis. Height: 5 feet. Weight: 122 Blood Glucose: 95. COMPARISON: There are no prior PET/CT examinations available for comparison. FINDINGS: The recent CT chest exam performed on 10/31/2020 however it did note an 8 mm noncalcified nodule in the right upper lobe. This had increased in size since the prior exam of 08/01/2020 when it measured 5 mm. On this study, that nodule is again identified and does not appear to have changed significantly in size. The maximum SUV in this area is approximately 1. Consequently, it is unlikely that this is neoplastic in nature. Even so, I would concur with the recommendation of the previous exam that a short-term (three-month) follow-up CT chest exam be obtained for continued evaluation. The 11 mm area of groundglass density in the left upper lung seen on the previous study does not seem to have changed significantly either. There is no hypermetabolic activity associated with this finding. The remainder of the PET/CT exam is unremarkable for any hypermetabolic activity that would suggest the presence of malignancy. The CT images failed to show any sign of an acute abnormality. IMPRESSION: 1. The 8 mm nodule in the right upper lobe seen previously is not hypermetabolic. Consequently, it is unlikely that this is related to an aggressive neoplastic process. Even so, a short-term (three-month) follow-up CT chest exam would be recommended for further evaluation. 2. There is no other hypermetabolic activity to suggest the presence of malignancy. 3. These results were discussed with Dr. Renee Hernandez. Dictated on workstation # [id number]
== END ==
LOC: RAD 09:45
PROVIDERS: ATTEND Family Medicine
DX: R91.1 Solitary pulmonary nodule (principal)
CPT/HCPCS: 78815; A9552

== ENCOUNTER → 2021-01-29 | Outpatient (CLI) | payer MEDICARE ==
--- NOTE | 2021-01-29 13:59 | Diagnostic Imaging Report ---
EXAMINATION: CT chest without contrast. TECHNIQUE: Multiple contiguous axial images were obtained through the chest without the use of intravenous contrast. All CT scans use one or more of the following dose optimizing techniques: automated exposure control, MA and/or KvP adjustment based on patient size and exam type or iterative reconstruction. HISTORY: Lung nodule COMPARISON: 10/31/2020 FINDINGS: There is no edema or pneumonia. No pleural effusion. No pneumothorax. Right upper lobe nodule measures 10 x 10 mm previously 8 x 7 mm. On 08/01/2020 measured 4 x 5 mm. There is an unchanged 12 mm groundglass left upper lobe nodule. There is no axillary or supraclavicular lymphadenopathy. There is no mediastinal lymphadenopathy. Heart size is normal. There are mild coronary artery calcifications. No pericardial effusion. Aorta is normal in caliber. Limited views of the upper abdomen are unremarkable. There are no suspicious osseus lesions. IMPRESSION: 1. Continued growth of right upper lobe pulmonary nodule measuring 10 x 10 mm. This is almost certainly a lung cancer. Biopsy or PET/CT could be performed although a negative PET exam would not necessarily be reassuring that it is benign due to its small size. Also consider thoracic surgery evaluation due to its small size but highly concerning characteristics, it may warrant wedge resection. Dictated by: Dictated on workstation # [id number]
== END ==
LOC: RAD 13:15
PROVIDERS: ATTEND Family Medicine
DX: R91.8 Other nonspecific abnormal finding of lung field (principal)
CPT/HCPCS: 71250

== ENCOUNTER → 2021-03-02 | Outpatient (CLI) | payer MEDICARE ==
--- NOTE | 2021-03-02 11:07 | Diagnostic Imaging Report ---
INDICATION: Routine screening. COMPARISON: 02/12/2020 and 10/13/2016. TECHNIQUE: 2D and 3D bilateral screening mammography was performed with CAD. FINDINGS: Scattered fibroglandular densities are identified bilaterally. There are two nodular densities in the left breast. A nodule in the upper and outer aspect of the left breast is noted at mid depth. This nodule is seen on both views. There is a second nodule, only seen on the MLO view, in the far posterior upper left breast. This is likely laterally located as well. Additional views of these nodules would be recommended. Spot compression views, 90 degree lateral views, and exaggerated CC view would be recommended. The right breast is unremarkable. There are scattered benign calcifications. The axillae are unremarkable. IMPRESSION: Left breast nodular densities, as described. Additional views are recommended for further evaluation. ACR BI-RADS Category 0: Incomplete. (Needs additional imaging evaluation). Result letter will be mailed to the patient. Note: At least 10% of breast cancer is not imaged by mammography. Dictated by: Dictated on workstation # [id number]
== END ==
LOC: RAD 10:30
PROVIDERS: ATTEND Nurse Practitioner Family
DX: Z12.31 Encounter for screening mammogram for malignant neoplasm of breast (principal); N63.20 Unspecified lump in the left breast, unspecified quadrant
CPT/HCPCS: 77063; 77067

== ENCOUNTER → 2021-03-12 | Outpatient (CLI) | payer MEDICARE ==
--- NOTE | 2021-03-12 13:13 | Diagnostic Imaging Report ---
INDICATION: Left breast densities. Patient presents for additional views. CORRELATION is made with a recent screening study from 03/02/2021. Unilateral left 2-D and 3-D diagnostic mammography was performed. This includes exaggerated CC, spot compression CC as well as mediolateral and spot compression mediolateral views. There are persistent nodular densities in the upper and outer aspect of the left breast. The more anterior density is approximately 7 cm from the nipple. The more posterior density is approximately 10 cm from the nipple. Further evaluation of these areas with ultrasound is recommended. No other suspicious abnormality is seen. IMPRESSION: BI-RADS 0 Persistent small nodular densities in the upper outer left breast, as described. Further evaluation with ultrasound is recommended and will be performed today. ACR BI-RADS Category 0: Incomplete. (Needs additional imaging evaluation). Result letter will be mailed to the patient. Note: At least 10% of breast cancer is not imaged by mammography. Dictated by: Dictated on workstation # [id number]
--- NOTE | 2021-03-12 16:32 | Diagnostic Imaging Report ---
INDICATION: Left breast densities. Correlation is made with diagnostic mammogram earlier the same day and screening mammogram from 03/02/2021. Sonographic interrogation of the upper outer left breast was performed. There is a simple appearing cyst at the 1:00 location of the left breast, 6 cm from the nipple measuring 4 mm x 6 mm x 3 mm. This likely accounts for the circumscribed anterior nodule noted mammographically. No other suspicious abnormality in the deeper upper outer left breast is seen. There is a normal-sized lymph node present. No other abnormalities are detected. IMPRESSION: BI-RADS Category 4 1. Simple cyst at the 1:00 location of the left breast, 6 cm from the nipple, accounting for the more anterior density noted mammographically. 2. No definite sonographic abnormality is seen to account for the irregular density more posteriorly in the upper outer left breast. Due to the appearance mammographically, biopsy would be recommended. This would be amenable to stereotactic biopsy approach. ACR BI-RADS Category 4: Suspicious abnormality. Result letter will be mailed to the patient. Note: At least 10% of breast cancer is not imaged by mammography. Dictated by: Dictated on workstation # [id number]
== END ==
LOC: RAD 12:45
PROVIDERS: ATTEND Family Medicine
DX: N63.21 Unspecified lump in the left breast, upper outer quadrant (principal)
CPT/HCPCS: 76642; 77065; G0279

== ENCOUNTER → 2021-03-26 | Outpatient (CLI) | payer MEDICARE ==
[~2021-03-26] VITALS: Ht 155 cm; Wt 55.0 kg
[~2021-03-26] MED LIST changes: +LIDOCAINE 1% INJ 20 ML VIAL INJ ONE
--- NOTE | 2021-03-26 14:28 | Diagnostic Imaging Report ---
Indication: Left breast density. Patient presents for serotactic biopsy. Patient brought to the stereotactic suite and placed in a sitting upright position. The left breast was positioned lateral medial. Targeting of the density in the posterior upper left breast was performed. The lateral left breast was then prepped and draped usual sterile fashion. Small amount of 1% lidocaine was utilized for local anesthesia. A 8 gauge needle was then advanced from a lateral medial projection and placed per targeting coordinates. A total of 4 core biopsies were obtained with the vacuum-assisted device. Specimen radiograph was obtained. There is a calcification within the specimen labeled #3. A marker clip was then deployed. The needle was removed and hemostasis was obtained. 2-D, CC and lateral medial mammogram was performed showing a marker clip in the upper posterior left breast on the LM view. The clip does appear to be somewhat medially located on the CC view which could be owing to some clip migration along the tract. Patient tolerated procedure well left the department in stable condition. All images were viewed on a dedicated workstation. IMPRESSION: Stereotactic biopsy of left breast density, as described utilizing a vacuum-assisted device. Pathology results are currently pending. Dictated by: Dictated on workstation # [id number]
== END ==
LOC: RAD 12:45
PROVIDERS: ATTEND Nurse Practitioner Family
DX: R92.2 Inconclusive mammogram (principal)
CPT/HCPCS: 19081; A4648

== ENCOUNTER → 2021-07-21 | Outpatient (RCR) | payer MEDICARE ==
[~2021-07-21] MED LIST changes: -LIDOCAINE 1% INJ 20 ML VIAL INJ ONE
== END | disposition home or self-care (01) ==
PROVIDERS: ATTEND Family Medicine
DX: M54.6 Pain in thoracic spine (principal)

== ENCOUNTER 2021-07-30 11:09 | Outpatient (RCR) | payer MEDICARE | END 2021-08-20 10:55 | disposition home or self-care (01) | PROVIDERS: ATTEND Family Medicine | DX: M54.6 Pain in thoracic spine (principal) ==

== ENCOUNTER → 2022-04-26 | Outpatient (CLI) | payer MEDICARE ==
--- NOTE | 2022-04-26 12:27 | Diagnostic Imaging Report ---
INDICATION: Routine screening. COMPARISON: 03/02/2021 and 02/12/2020. TECHNIQUE: 2D and 3D bilateral screening mammography was performed with CAD. FINDINGS: Scattered fibroglandular densities are identified bilaterally. A clip in the left breast is noted from prior biopsy. The benign-appearing nodule in the outer left breast is stable. No new mass or malignant-appearing microcalcifications are seen. The axillae are unremarkable. IMPRESSION: No mammographic features suspicious for malignancy are identified. ACR BI-RADS Category 2: Benign findings. Result letter will be mailed to the patient. Note: At least 10% of breast cancer is not imaged by mammography. Dictated by: Dictated on workstation # [id number]
== END ==
LOC: RAD 09:48
PROVIDERS: ATTEND Nurse Practitioner Family
DX: Z12.31 Encounter for screening mammogram for malignant neoplasm of breast (principal)
CPT/HCPCS: 77063; 77067